=== PATIENT | male | born 1940 | race Caucasian/White ===

== ENCOUNTER 2017-04-28 04:59 | Inpatient (IN) | payer MEDICARE, OTHER ==
[2017-04-28] VITALS (8 sets, daily range): BP systolic 105–131; BP diastolic 57–91
[~2017-04-28] VITALS: Ht 180.3 cm; Wt 102.1 kg
[~2017-04-28 04:59] MED LIST: ACCUPRIL40 MG; ACCUPRIL40 MG PO; ADULT LOW DOSE81 MG; ADVICOR; ADVICOR PO; ALLOPURINOL 10100 M3 PO; CALCITRIOL0.25 MCG PO; CARVEDILOL12.5 MG PO; CARVEDILOL25 MG; COUMADIN 5 MG TA5 M1; FELODIPINE; FELODIPINE 5 MG5 M1 PO; FUROSEMIDE 40 M40 MG PO; IMDUR 30 MG TAB30 MG; KEFLEX500 MG PO; LANOXIN 0.250.25 M1 PO; LASIX 40 MG TAB40 M1 PO; LEVAQUIN 500 M500 M2 PO; LEVOTHROID50 MCG; PRADAXA75 MG PO; SERTRALINE HCL50 MG PO; SPIRONOLACTONE25 M1; SYNTHROID50 MCG PO; ZETIA10 MG; ZETIA10 MG PO
[2017-04-28 05:50] LABS: ABSOLUTE BASOPHILS 0.1 thou/uL (0.0-0.2); ABSOLUTE EOSINOPHILS 0.3 thou/uL (0.0-0.7); ABSOLUTE NEUTROPHILS 11.1 thou/uL (1.6-8.1); BASOPHILS 0.9 %; HEMATOCRIT 41.7 % (42.0-52.0); HEMOGLOBIN 13.4 gm/dL (14.0-18.0); LYMPHOCYTES 12.7 %; MCH 28.9 pg (26.0-34.0); MCHC 32.2 g/dL (28.0-37.0); MCV 89.6 fL (80.0-100.0); MONOCYTES 12.8 %; MPV 7.8 fl. (7.2-11.1); NUCLEATED RBCS 0 /100WBC; PLATELET COUNT* 324 thou/uL (150-400); POLYS 71.6 %; RBC 4.65 mil/uL (4.50-6.00); RDW-CV 13.8 % (10.5-14.5); WBC 15.6 thou/uL (4.0-11.0)
[2017-04-28 06:05] LABS: CALCIUM 8.7 mg/dL (8.5-10.1); CREATININE 1.4 mg/dL (0.6-1.3); POTASSIUM 3.9 mmol/L (3.5-5.1)
[2017-04-28 06:06] LABS: INR 1.1; PROTIME 10.9 Seconds (9.20-11.50)
[2017-04-28 06:13] LABS: ALBUMIN 2.9 g/dL (3.4-5.0); TOTAL BILIRUBIN 0.5 mg/dL (<0.1-1.0); TOTAL PROTEIN 7.2 g/dL (6.4-8.2); TROPONIN-I LEVEL 0.34 ng/mL (<0.06)
--- NOTE | 2017-04-28 08:15 | NUR ---
DR JUAREZ IN ROOM, AMIDOARONE D/C'D, METOPROLOL GIVEN, REPEAT EKG DONE
--- NOTE | 2017-04-28 11:27 | EKG ---
[place] [address] ELECTROCARDIOGRAM REPORT Name: LATRELL BLACK Room: [address] ADM IN .R.#: [id number] Admission: 04/28/17 Attend Phys: Bryce Brush MD Discharge: Date of : 38 Report #: [id number] THIS REPORT FOR: //name// [facility] ED Test Date: 2017-04-28 Test Time: 05:32:15 Pat Name: LATRELL BLACK Department: Room: [facility] Gender: M Data Conversion Operator: RONN Hollis : 1940 Requested By: Kizzy Shine Order Number: [id number] MD: Chavo Goff Measurements Intervals [place] Rate: 139 P: 0 MI: 29 QRS: -50 QRSD: 164 T: 129 QT: 383 QTc: 583 Interpretive Statements wide complex tachycardia Left bundle branch block Baseline wander in lead(s) V3 Compared to ECG 08/26/2016 04:46:33 Ventricular-paced complex(es) or rhythm no longer present Electronically Signed On 04-28-2017 11:27:11 HAZARD WASTE HANDLER by Chavo Goff [email or web address] <ELECTRONICALLY SIGNED> By: Chavo Goff MD, FAC 04/28/17 1127 0532 0532 Chavo Goff MD, [facility] /EPI
--- NOTE | 2017-04-28 11:30 | EKG ---
[place] [address] ELECTROCARDIOGRAM REPORT Name: LATRELL BLACK Room: [address] ADM IN .R.#: [id number] Admission: 04/28/17 Attend Phys: Bryce Brush MD Discharge: Date of : 38 Report #: [id number] THIS REPORT FOR: //name// [facility] ED Test Date: 2017-04-28 Test Time: 08:14:12 Pat Name: LATRELL BLACK Department: Room: [facility] Gender: Corporate Law Assistant: Bunny HIGGINBOTHAM : 1940 Requested By: Kizzy Shine Order Number: [id number] MD: Chavo Goff Measurements Intervals [place] Rate: 72 P: 0 AL: 81 QRS: 221 QRSD: 143 T: 60 QT: 459 QTc: 503 Interpretive Statements Ventricular-paced complexes No further analysis attempted due to paced rhythm Electronically Signed On 04-28-2017 11:30:25 BONDED STRUCTURES REPAIRER by Chavo Goff [email or web address] <ELECTRONICALLY SIGNED> By: Chavo Goff MD, [facility] 04/28/17 1130 3 3 Chavo Goff MD, FACC /EPI
--- NOTE | 2017-04-28 20:06 | NUR ---
PATIENT RESTING IN BED, STATES THAT A DOCTOR AND A NURSE WERE IN HIS ROOM EARLIER TALKING TO HIM ABOUT HIS CODE STATUS, STATES TELLING THEM THAT HE WAS WANTING TO BE A DNR. NO ORDERS ON CHART FOR A DNR. PATIENT THEN TELLING THIS NURSE THAT HE WAS THINKING ABOUT IT AFTERWARD AND WANTS TO BE A FULL CODE. DR. DEWEY NOTIFIED, ORDERS RECEIVED AND NOTED. DNR BRACELET REMOVED. WILL MONITOR.
--- NOTE | 2017-04-28 23:32 | NUR ---
PATIENT STATES NOT HAVING HIS PRADAXA HERE AND IS TO RECEIVE A DOSE TONIGHT, PHARMACY STATES NOT CARRYING IT HERE. PATIENT STATES NOT HAVING A WAY TO GET HIS HOME DOSING HERE. DR. DEWEY NOTIFIED, ORDERS RECEIVED TO START PATIENT ON ELIQUIS FOR THIS REASON. PATIENT TO RECEIVE FIRST DOSE TONIGHT. WILL MONITOR.
[2017-04-29] VITALS (7 sets, daily range): BP systolic 114–140; BP diastolic 57–84
[2017-04-29 03:41] LABS: ABSOLUTE BASOPHILS 0.1 thou/uL (0.0-0.2); ABSOLUTE EOSINOPHILS 0.2 thou/uL (0.0-0.7); ABSOLUTE LYMPHOCYTES 1.9 thou/uL (0.8-5.3); ABSOLUTE MONOCYTES 2.3 thou/uL (0.0-1.2); ABSOLUTE NEUTROPHILS 10.5 thou/uL (1.6-8.1); BASOPHILS 0.7 %; EOSINOPHILS 1.3 %; HEMATOCRIT 36.8 % (42.0-52.0); LYMPHOCYTES 12.9 %; MCH 29.5 pg (26.0-34.0); MCHC 32.7 g/dL (28.0-37.0); MCV 90.2 fL (80.0-100.0); MONOCYTES 15.2 %; MPV 8.3 fl. (7.2-11.1); NUCLEATED RBCS 0 /100WBC; PLATELET COUNT* 258 thou/uL (150-400); POLYS 69.9 %; RBC 4.09 mil/uL (4.50-6.00); RDW-CV 13.9 % (10.5-14.5)
[2017-04-29 03:51] LABS: CALCIUM 8.1 mg/dL (8.5-10.1); CREATININE 2.1 mg/dL (0.6-1.3); POTASSIUM 4.4 mmol/L (3.5-5.1)
--- NOTE | 2017-04-29 05:04 | NUR ---
PATIENT RESTED WELL THROUGH THE NIGHT. UP AD ABISAI IN ROOM. DENIES PAIN OR NEEDS. MEDS PER MAR. CALL LIGHT WITHIN REACH, ENCOURAGED TO CALL FOR NEEDS.
--- NOTE | 2017-04-29 10:16 | NUR ---
ASSUMED PT CARE 0730. PT A/O X'S 4. NO C/O NECK PAIN OR PAIN. VSS. AFEBRILE. TRACING AV PACED ON TILE PICKER. PT TELE STATUS. PT HAS ADEQUATE INTAKE. VOIDING PER URINAL. WILL CONTINUE PLAN OF CARE.
--- NOTE | 2017-04-29 12:10 | NUR ---
RECEIVED REPORT FROM YNES ALMODOVAR. PT. TRANSFERED TO ROOM 229. PT A/OX4, VSS, MONITOR PLACED TRACING AV PACED. PT. DNIES CURRENT PAIN/SOB. NO CHANGES NOTED SINCE A.M. ASSESSMENT. PT. ORIENTED TO ROOM/PROCEDURES. CALL LIGHT IN REACH, WILL CONTINUE WITH PLAN OF CARE.
--- NOTE | 2017-04-29 15:51 | NUR ---
PT. CALLED RN TO BATHROOM TO SHOW BLOOD IN URINE. DR. JUAREZ ON UNIT, NOTIFIED OF SMALL AMOUNT OF BLOOD IN URINE. ORDER RECEIVED TO STOP ELIQUIS.
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
[2017-04-30] VITALS: BP 65/44
[2017-04-30 04:00] VITALS: BP 147/57
--- NOTE | 2017-04-30 05:52 | NUR ---
PATIENT ALERT AND ORIENTED TIMES FOUR. UP AD ABISAI. NO COMPLAINTS OF PAIN OR DISCOMFORT NOTED. HOPEFUL TO GO HOME TODAY. HOURLY ROUNDING AND EDGE MOLDER COMPLETED DOCUMENTED.
[2017-04-30 11:30] VITALS: BP 126/67
--- NOTE | 2017-04-30 12:37 | EKG ---
[place] [address] ELECTROCARDIOGRAM REPORT Name: LATRELL BLACK Room: [address] ADM IN .R.#: [id number] Admission: 04/28/17 Attend Phys: Bryce Brush MD Discharge: Date of : 38 Report #: [id number] THIS REPORT FOR: //name// [facility] Test Date: 2017-04-30 Test Time: 09:06:16 Pat Name: LATRELL BLACK Department: Room: [address] Gender: M Six Sigma Black Belt Engineer: : 1940 Requested By: Chavo Goff Order Number: [id number] [place] MD: Chavo Goff Measurements Intervals [place] Rate: 71 P: 125 OK: 187 QRS: 243 QRSD: 137 T: 85 QT: 449 QTc: 488 Interpretive Statements atrial Ventricular-paced rhythm No further analysis attempted due to paced rhythm Baseline wander in lead(s) V5 Compared to ECG 04/28/2017 08:14:12 atrial fibrillation no longer noted Electronically Signed On 04-30-2017 12:36:52 TUBER OPERATOR by Chavo Goff [email or web address] <ELECTRONICALLY SIGNED> By: Chavo Goff MD, [facility] 04/30/17 1236 0906 [id number] Chavo Goff MD, [facility] /EPI
--- NOTE | 2017-04-30 12:51 | NUR ---
INITIAL ASSESSMENT: Pt evaluated for d/c planning needs. Reviewed chart and spoke with nurse and pt. Pt is alert and oriented and very [place]. Pt lives alone and was independent with ADL's prior to admission. Pt has not had home health in the past. Pt has walker and cane at home. Pt remains active in the community and is still driving. Spouse of 54 years about 2 months ago and pt is visiting with grief counselor. Spouse had Alzheimers and Parkinsons and was in a rest home prior to her . Pt is estranged from 50 year old son. Pt has good friend support. Pt plans on returning home on d/c from hospital. No d/c needs indicated.
[2017-04-30 15:30] VITALS: BP 112/52
--- NOTE | 2017-04-30 18:00 | NUR ---
NO C/O PAIN THIS SHIFT. VSS. AFEBRILE. TRACING AV PACED ON ANIMAL WARDEN. PT UP AD ABISAI. PT ANXIOUS TO GO HOME TOMORROW. MEDICATIONS ADMIINSTERED PER JUN. LEFT HEARING AID IN PLACE.
[2017-04-30 19:45] VITALS: BP 124/72
[2017-05-01] VITALS: BP 123/54
[2017-05-01 04:00] VITALS: BP 127/60
--- NOTE | 2017-05-01 04:54 | NUR ---
END SHIFT: PT RESTED WELL. NO COMPLAINTS. NO PAIN. REMAINS V PACED VS AV PACED ON MONITOR. NO ECTOPY. PT HAS BEEN WHEEZY THROUGHOUT THE NIGHT. SATS HAVE SUSTAINED 90-94% ON RA. PT STATES HE DOES NOT WEAR ANY O2 AT HOME. PT STATES HE DOES GET SOA WITH EXURSION. TOLERATING BLOOD THINNER WITH NO S/S OF BLEEDING. PROGRESSING TOWARDS GOALS. AWAITING POSSIBLE DC THIS WEEKEND. SAFETY PRECAUTIONS IN PLACE. CALL LIGHT IN REACH. PERFORMED HOURLY ROUNDING. WILL CONT TO MONITOR.
[2017-05-01 05:24] LABS: CALCIUM 8.6 mg/dL (8.5-10.1); CREATININE 1.7 mg/dL (0.6-1.3); POTASSIUM 4.3 mmol/L (3.5-5.1)
[2017-05-01 08:00] VITALS: BP 156/83
[2017-05-01] MEDS ORDERED: PACERONE 200 M200 M1 PO ×2 (12:46→14:17)
[2017-05-01] MEDS ORDERED: ATORVASTATIN CA40 MG PO (12:46)
[2017-05-01 13:06] VITALS: BP 137/77
[2017-05-01 13:14] VITALS: BP 126/68
--- NOTE | 2017-05-01 13:54 | NUR ---
ASSUMED CARE OF PATIENT THIS AM AT 0730. PATIENT IS ALERT AND ORIENTED X 4. HE DENIES PAIN. PATIENT IS UP AD ABISAI IN THE ROOM. TELE SHOWS AV PACED. DR RICH IN TO ROUND AND DISCHARGE OKAYED BY CARDIOLOGY. PATIENT HAS BEEN DOZING OFF AND ON TODAY. NO FALLS OR INJURY. WILL CONTINUE TO MONITOR.
[2017-05-01 14:23] VITALS: BP 126/68
--- NOTE | 2017-05-01 15:53 | NUR ---
PATIENT DISCHARGED TO HOME WITH BELONGINGS PER W/C.
== END 2017-05-01 15:45 | disposition home or self-care (01) | DRG 308 ==
LOC: M.ERS 04:59 → M.2W 08:58 → M.TBA-ER 08:58 → M.ICU 10:10 → M.2W 04-29 11:58
PROVIDERS: Emergency Medicine; Internal Medicine Cardiovascular Disease; ADMIT Internal Medicine
DX: I47.2 Ventricular tachycardia (principal); R65.11 Systemic inflammatory response syndrome (SIRS) of non-infectious origin with acute organ dysfunction; I42.9 Cardiomyopathy, unspecified; I25.110 Atherosclerotic heart disease of native coronary artery with unstable angina pectoris; I13.0 Hypertensive heart and chronic kidney disease with heart failure and stage 1 through stage 4 chronic kidney disease, or unspecified chronic kidney disease; N17.9 Acute kidney failure, unspecified; G89.29 Other chronic pain; M54.9 Dorsalgia, unspecified; I48.91 Unspecified atrial fibrillation; E78.5 Hyperlipidemia, unspecified; G70.00 Myasthenia gravis without (acute) exacerbation; I50.9 Heart failure, unspecified; N18.9 Chronic kidney disease, unspecified; I48.92 Unspecified atrial flutter; M19.90 Unspecified osteoarthritis, unspecified site; Z28.21 Immunization not carried out because of patient refusal; Z95.0 Presence of cardiac pacemaker; Z82.49 Family history of ischemic heart disease and other diseases of the circulatory system; Z79.899 Other long term (current) drug therapy; Z88.8 Allergy status to other drugs, medicaments and biological substances; Z91.041 Radiographic dye allergy status

== ENCOUNTER → 2017-05-13 | Outpatient (CLI) | payer MEDICARE, OTHER ==
[~2017-05-13] MED LIST changes: +ATORVASTATIN CA40 MG PO; +PACERONE 200 M200 M1 PO; +TRAMADOL 50 MG50 MG PO
[2017-05-13 08:40] VITALS: BP 139/78
[2017-05-13 10:40] VITALS: BP 150/88
--- NOTE | 2017-05-13 11:09 | NUR ---
ARRIVED AMBULATORY WITH CANE. MADE COMFORTABLE IN RECLINER. BRASKFAST ORDERED AND 100% EATEN. IV STARTED WITH OUT DIFFICULTY. PREMEDS COMPLETED. REQUEST TO ONLY TAKE 25MG OF BENADRYL RELATED TO FACT IT MAKES HIM TO SLEEPY AND UNABLE TO DRIVE HOME SAFTLY. STATED WILL TAKE IN NEEDED. INFUSION STARTED AND RUNNING WELL.
[2017-05-13 13:30] VITALS: BP 152/84
--- NOTE | 2017-05-13 14:09 | NUR ---
INFUSION COMPLETED AND TOLERATED VERY WELL. DENIES ADVERSE REACTION. DENIES NEEDS OR QUESTIONS AT DISCHARGE.
== END ==
LOC: M.INFUS 02:50
DX: G70.00 Myasthenia gravis without (acute) exacerbation (principal); M54.2 Cervicalgia; I47.2 Ventricular tachycardia

== ENCOUNTER → 2017-05-28 | Outpatient (CLI) | payer MEDICARE, OTHER | LOC: M.RAD 15:05 | DX: M47.896 Other spondylosis, lumbar region (principal); M16.0 Bilateral primary osteoarthritis of hip; M25.78 Osteophyte, vertebrae ==

== ENCOUNTER 2017-05-30 15:03 | Emergency (ER) | payer MEDICARE, OTHER ==
[~2017-05-30] VITALS: Ht 182.9 cm; Wt 95.3 kg
[~2017-05-30 15:03] MED LIST changes: -TRAMADOL 50 MG50 MG PO
[2017-05-30] MEDS ORDERED: TRAMADOL 50 MG50 MG PO (15:37)
[2017-05-30 15:59] VITALS: BP 188/90
== END 2017-05-30 16:01 | disposition home or self-care (01) ==
LOC: M.ERS 15:03
DX: S76.012A Strain of muscle, fascia and tendon of left hip, initial encounter (principal); Z95.0 Presence of cardiac pacemaker; Z88.8 Allergy status to other drugs, medicaments and biological substances; W01.0XXA Fall on same level from slipping, tripping and stumbling without subsequent striking against object, initial encounter; Y93.89 Activity, other specified; Y92.89 Other specified places as the place of occurrence of the external cause; Y99.8 Other external cause status

== ENCOUNTER → 2017-06-03 | Outpatient (CLI) | payer MEDICARE, OTHER ==
[~2017-06-03] MED LIST changes: +TRAMADOL 50 MG50 MG PO
== END ==
LOC: M.INFUS 01:24
DX: G70.00 Myasthenia gravis without (acute) exacerbation (principal); R10.2 Pelvic and perineal pain

== ENCOUNTER → 2017-06-25 | Outpatient (CLI) | payer MEDICARE, OTHER ==
[2017-06-25 08:15] VITALS: BP 144/80
[2017-06-25 10:15] VITALS: BP 130/78
[2017-06-25 13:40] VITALS: BP 122/80
--- NOTE | 2017-06-25 15:01 | NUR ---
ARRIVED AMBULATROY. MADE SELF COMFORTABLE IN RECLINER. IV STARTED WITH OUT DIFFICULTY. FLUSHED WITH EASE. DENIES ADVERSE REACTION TO PRIOR INFUSIONS OF SAME. REFUSED 50MG OF BENADRYL. TOOK 25MG INSTEAD STATED 50 WAS TO MUCH AND HE CANT DRIVE HOME WITH IT. INFUSION COMPLETED AND TOLERATED WELL. DENIES QUESTIONS OR NEEDS AT DISCHARGE.
== END ==
LOC: M.INFUS 06-24 09:30
DX: G70.00 Myasthenia gravis without (acute) exacerbation (principal); R10.2 Pelvic and perineal pain

== ENCOUNTER → 2017-07-15 | Outpatient (CLI) | payer MEDICARE, OTHER ==
[2017-07-15 08:40] VITALS: BP 122/71
[2017-07-15 13:57] VITALS: BP 137/97
--- NOTE | 2017-07-15 14:15 | NUR ---
ARRIVED AMBULATORY WITH CANE. MADE SELF COMFORTABLE IN RECLINER. DENIES ADVERSE REACTION TO MULTIPLE PRIOR INFUSIONS OF SAME. IV STARTED WITH OUT DIFFICULTY. INFUSION COMPLETED AND TOLERATED WELL. DENIES QUESTIONS OR NEEDS AT DISCHARGE.
== END ==
LOC: M.INFUS 01:13
DX: G70.00 Myasthenia gravis without (acute) exacerbation (principal)

== ENCOUNTER → 2017-08-05 | Outpatient (CLI) | payer MEDICARE, OTHER ==
[2017-08-05 08:08] VITALS: BP 165/100
[2017-08-05 13:14] VITALS: BP 159/86
--- NOTE | 2017-08-05 13:20 | NUR ---
ARRIVED AMUBLATORY. MADE SELF COMFORTABLE. DENIES ADVERSE REACTION TO PRIOR INFUSION OF SAME. INFUSION COMPLETED AND TOLERATED WELL. DENIES NEEDS AT DISCHARGE.
--- NOTE | 2017-09-21 13:32 | NUR ---
LATE ENTRY FOR 08/05/17 IMMUNE GLOBULIN STOP TIME [id number]
== END ==
LOC: M.INFUS 03:11
DX: G70.00 Myasthenia gravis without (acute) exacerbation (principal); I48.92 Unspecified atrial flutter; I12.9 Hypertensive chronic kidney disease with stage 1 through stage 4 chronic kidney disease, or unspecified chronic kidney disease; N18.9 Chronic kidney disease, unspecified

== ENCOUNTER 2018-09-17 14:42 | Emergency (ER) | payer OTHER ==
[~2018-09-17] VITALS: Ht 175.3 cm; Wt 95.3 kg
[2018-09-17] MEDS ORDERED: METFORMIN HCL500 MG PO (14:58)
[2018-09-17] MEDS ORDERED: CELLCEPT500 MG PO (14:58)
[2018-09-17] MEDS ORDERED: ACCUPRIL40 MG PO (14:59)
[2018-09-17] MEDS ORDERED: SEROQUEL 50 MG50 MG PO (14:59)
[2018-09-17] MEDS ORDERED: PYRIDOXINE HCL50 MG PO (14:59)
[2018-09-17] MEDS ORDERED: TRAMADOL 50 MG50 MG PO (16:22)
[2018-09-17 16:51] VITALS: BP 125/73
== END 2018-09-17 16:54 | disposition home or self-care (01) ==
LOC: M.ERS 14:42
DX: S83.91XA Sprain of unspecified site of right knee, initial encounter (principal); S93.401A Sprain of unspecified ligament of right ankle, initial encounter; W10.9XXA Fall (on) (from) unspecified stairs and steps, initial encounter; Y93.89 Activity, other specified; Y92.89 Other specified places as the place of occurrence of the external cause; Y99.8 Other external cause status; M54.9 Dorsalgia, unspecified; G89.29 Other chronic pain; Z96.659 Presence of unspecified artificial knee joint; Z96.619 Presence of unspecified artificial shoulder joint; Z91.041 Radiographic dye allergy status; Z88.8 Allergy status to other drugs, medicaments and biological substances